=== PATIENT | female | born 1990 | race Two or more races ===

== ENCOUNTER 2023-07-18 04:46 | Emergency (ER) | payer OTHER ==
[~2023-07-18] VITALS: Ht 154.9 cm; Wt 49.0 kg
[2023-07-18] MEDS ORDERED: NORFLEX100MG PO (05:11)
[2023-07-18] MEDS ORDERED: KETO10TA2 PO (05:11)
[2023-07-18] MEDS ORDERED: LEVOTHYROXINE50 MC1 PO (05:15)
[2023-07-18] MEDS ORDERED: HYDROXYCHLOROQ200 MG PO (05:16)
[2023-07-18] MEDS ORDERED: METHYLPREDNISOLO8 MG PO (05:17)
[2023-07-18] MEDS ORDERED: TRAMADOL HCL 50 MG TABLET PO STA (07:25)
== END 2023-07-18 09:21 | disposition home or self-care (01) ==
LOC: ER 04:46
DX: M25.519 Pain in unspecified shoulder (principal); Z88.8 Allergy status to other drugs, medicaments and biological substances